=== PATIENT | male | born 1980 | race Caucasian/White ===

== ENCOUNTER 2023-03-18 12:43 | Emergency (ER) | payer BC, MEDICAID ==
[2023-03-18] MEDS ORDERED: hydrOXYzine HCL 100 MG/2 ML SDV IM ONE (13:24)
[2023-03-18] MEDS ORDERED: methylPREDNISolone Sodium Succinate 125 MG/2 ML SDV IM ONE (13:24)
== END 2023-03-18 14:39 | disposition home or self-care (01) ==
LOC: JP.ED 12:43
DX: L25.9 Unspecified contact dermatitis, unspecified cause (principal); F17.210 Nicotine dependence, cigarettes, uncomplicated
CPT/HCPCS: 96372; 99282; J2930; J3410